=== PATIENT | female | born 1975 | race Caucasian/White ===

== ENCOUNTER 2016-09-02 17:12 | Emergency (ER) | payer OTHER ==
[~2016-09-02] VITALS: Ht 177.8 cm; Wt 60.3 kg
[2016-09-02] MEDS ORDERED: OXYCODONE/APAP 5-325 MG TABLET PO ONE (18:45)
[2016-09-02] MEDS ORDERED: CEPHALEXIN MONOHYDRATE 500 MG CAPSULE PO ONE (18:45)
[2016-09-02] MEDS ORDERED: CEPHALEXIN MONOHYDRATE 500 MG CAPSULE ONE (18:58)
[2016-09-02] MEDS ORDERED: OXYCODONE/APAP 5-325 MG TABLET ONE (18:59)
--- NOTE | 2016-09-02 19:52 | NUR ---
Patient discharged to home in stable conditon. Written and verbal after care instructions given. Patient verbalizes understanding of instructions.
[2016-09-02] MEDS ORDERED: LIDOCAINE 1%-EPI 1:100,000 20 ML VIAL TP ONE (21:30)
[2016-09-02] MEDS ORDERED: SODIUM BICARBONATE 4.2 % (NEUT) 5 ML VIAL TP ONE (21:30)
== END 2016-09-02 19:53 | disposition home or self-care (01) ==
LOC: ER 17:15
DX: S61.213A Laceration without foreign body of left middle finger without damage to nail, initial encounter (principal); Y99.8 Other external cause status; X58.XXXA Exposure to other specified factors, initial encounter; Y92.89 Other specified places as the place of occurrence of the external cause; Y93.89 Activity, other specified; Z88.6 Allergy status to analgesic agent
CPT/HCPCS: 12001; 73130; 99284; A4217 ×2; A4663; J3490 ×2